=== PATIENT | male | born 1960 | race Caucasian/White ===

== ENCOUNTER 2019-04-12 15:30 | Inpatient (IN) | payer OTHER ==
[2019-04-12 17:55] VITALS: BMI 24.3
--- NOTE | 2019-04-12 20:06 | HP ---
CIWA Score - Admission Criteria [facility] Guidelines: Admission for Medically Managed Detox: Requires at least one of the followin. CIWA greater than 12 2. Seizures within the past 24 hours 3. Delirium tremens within the past 24 hours 4. Hallucinations within the past 24 hours 5. Acute intervention needed for co occurring medical disorder 6. Acute intervention needed for co occurring psychiatric disorder 7. Severe withdrawal that cannot be handled at a lower level of care (continued vomiting, continued diarrhea, abnormal vital signs) requiring intravenous medication and/or fluids 8. Admission ROS [facility] - HPI Chief Complaint: here for rehab from cocaine, in a MAT- methadone program Allergies/Adverse Reactions: Allergies Allergy/AdvReac Type Severity Reaction Status Date / Time No Known Allergies Allergy Verified 04/12/19 17:31 History of Present Illness: 58 yo- poor historian, with cured HCV, ? HTN, asthma, homeless, sleeps on the streets of [place]. PCP- does not remember. On trazodone- has not taken for several weeks. Methadone program- [address] Pt brought a list of medications (printed from PCP?) that he has been on over the last few years- pt is currently not taking any medications. cocaine- 1/2 gram injects, heroin- 3 bags/day IV THC- occasion alcohol- rarely DUR- no controlled substances Utox- THC, debbi, Mop, MTD Exam Limitations: Other (pt is hard of hearing) - Ebola screening Have you traveled outside of the country in the last 21 days: No Have you had contact with anyone from an Ebola affected area: No - Review of Systems Constitutional: No Symptoms Reported EENT: reports: No Symptoms Reported Respiratory: reports: No Symptoms reported Cardiac: reports: No Symptoms Reported Patient History - Patient Medical History Hx Hypertension: Yes Hx Hepatitis C: Yes (cured) Other Medical History: hard of hearing - PPD History Documented Results: Negative w/proof - Smoking Cessation Smoking history: Current every day smoker Have you smoked in the past 12 months: Yes Aproximately how many cigarettes per day: 10 Hx Chewing Tobacco Use: No Initiated information on smoking cessation: Yes 'Breaking Loose' booklet given: 04/12/19 - Substances abused Heroin Substance route: Injection Frequency: Daily Amount used: 3 bags Age of first use: 20 Date of last use: 04/11/19 Crack Substance route: Smoking Frequency: Daily Amount used: 100 dollars Age of first use: 21 Date of last use: 04/11/19 Marijuana/Hashish Substance route: Smoking Frequency: Daily Amount used: 50 dollars Age of first use: 21 Date of last use: 04/11/19 Alcohol Substance route: Oral Frequency: Daily Amount used: 20 dollars Age of first use: 20 Date of last use: 04/11/19 Admission Physical Exam [facility] - Vital Signs Vital Signs: Vital Signs - 24 hr 04/12/19 17:48 Temperature 98.3 F Pulse Rate 54 L Respiratory 16 Rate Blood Pressure 141/80 - Physical General Appearance: Yes: Within Normal Limits, Other (hard of hearing) HEENTM: Yes: Within Normal Limits, Hearing grossly Normal (hard of hearing), Normal Voice, AVANI, Pharynx Normal Respiratory: Yes: Within Normal Limits, Lungs Clear Neck: Yes: Within Normal Limits Cardiology: Yes: Within Normal Limits, Regular Rhythm, Regular Rate Abdominal: Yes: Within Normal Limits, Normal Bowel Sounds, Non Tender Extremities: Yes: Within Normal Limits Neurological: Yes: Within Normal Limits, Alert, Normal Mood/Affect Integumentary: Yes: Within Normal Limits, Track Daley - Diagnostic (1) Cocaine use disorder Current Visit: Yes Status: Acute (2) Opioid use disorder Current Visit: Yes Status: Acute (3) Opioid dependence on agonist therapy Current Visit: Yes Status: Acute (4) Tobacco use disorder Current Visit: Yes Status: Acute Breathalyzer - Breathalyzer Breathalyzer: 0 Urine Drug Screen - Test Device Lot number: [id number] Expiration date: 12/09/20 - Control Is test valid?: Yes - Results Drug screen NEGATIVE: No Urine drug screen results: THC-Marijuana, DEBBI-Cocaine, MOP-Opiates, MTD- Methadone Inpatient Rehab Admission - Rehab Decision to Admit Inpatient rehab admission?: Yes - Initial Determination Are CD services needed?: Yes Free of communicable disease: Yes Not in need of hospitalization: Yes - Rehab Admission Criteria Previous failed treatment: Yes Poor recovery environment: Yes Comorbidities: Yes Lacks judgement: Yes Patient is meeting Inpatient Rehab admission criteria:: Yes (using cocaine, in MAT methadone)
[2019-04-12] MEDS ORDERED: hydrOXYzine PAMOATE 50 MG CAPSULE (FP) PO PRN (20:12)
[2019-04-12] MEDS ORDERED: guaiFENesin 200 MG/10 ML 10 ML UNIT-DOSE CUPS PO PRN (20:12)
[2019-04-12] MEDS ORDERED: MAGNESIUM CITRATE 300 ML BOTTLE PO PRN (20:12)
[2019-04-12] MEDS ORDERED: IBUPROFEN 400 MG TABLET (FP) PO PRN (20:12)
[2019-04-12] MEDS ORDERED: ACETAMINOPHEN 325 MG TABLET (FP) PO PRN (20:12)
[2019-04-12] MEDS ORDERED: P-EPHED 60MG/TRIPROLIDI 2.5MG TABLET PO PRN (20:12)
[2019-04-12] MEDS ORDERED: LOPERAMIDE HCL 2 MG CAPSULE PO PRN (20:12)
[2019-04-12] MEDS ORDERED: MAG HYDROX/AL HYDROX/SIMETH 30 ML UNIT-DOSE CUP PO PRN (20:12)
[2019-04-12] MEDS ORDERED: MENTHOL/PHENOL 1 EACH UD MM PRN (20:12)
[2019-04-12] MEDS ORDERED: MAGNESIUM HYDROX 2400MG/30ML ORAL SUSPENSION 30 ML CUP PO PRN (20:12)
[2019-04-12] MEDS ORDERED: ALBUTEROL SO4 8 GM HFA INHALER IH PRN (20:13)
[2019-04-12] MEDS: THIAMINE HCL 100 MG TABLET (FP) PO SCH (22:31)
[2019-04-12] MEDS: MELATONIN 5 MG TABLETS PO PRN (22:31)
[2019-04-13] MEDS ORDERED: LEVOTHYROXINE NA 75 MCG TABLET (FP) PO SCH (07:00)
[2019-04-13] MEDS ORDERED: METHADONE HCL 10 MG TABLET PO ONE (08:02)
[2019-04-13] MEDS ORDERED: METHADONE 80 MG, METHADONE 30 MG PO ONE (08:20)
[2019-04-13 08:43] LABS: PH,URINE 5.5 (5.0-8.0); URINE APPEARANCE TURBID; URINE BILIRUBIN NEGATIVE (NEGATIVE); URINE COLOR YELLOW; URINE GLUCOSE (UA) NEGATIVE (NEGATIVE); URINE KETONE NEGATIVE (NEGATIVE); URINE LEUK ESTERASE NEGATIVE (NEGATIVE); URINE NITRITE NEGATIVE (NEGATIVE); URINE PROTEIN NEGATIVE (NEGATIVE); URINE UROBILINOGEN 0.2 mg/dL (0.2-1.0)
[2019-04-13] MEDS ORDERED: METHADONE HCL 40 MG DISPERSABLE TABLET ONE (09:13)
[2019-04-13] MEDS ORDERED: METHADONE HCL 10 MG TABLET ONE (09:13)
[2019-04-13] MEDS: PRENATAL VITAMINS W/ FOLIC ACID TABLET (FP) PO SCH (09:35)
[2019-04-13] MEDS: LEVOTHYROXINE NA 25 MCG TABLET (FP) PO SCH (09:35)
[2019-04-13] MEDS: LISINOPRIL 10 MG TABLET (FP) PO SCH (09:36)
[2019-04-13] MEDS: NICOTINE 21 MG/24 HOURS TOPICAL PATCH TD SCH (09:36)
[2019-04-13 12:04] LABS: HEMATOCRIT 37.5 % (35.4-49); HEMOGLOBIN 12.1 GM/dL (11.7-16.9); MCHC 32.3 g/dl (32.0-35.9); MEAN PLT VOLUME 12.7 fl (7.5-11.1); PLATELET COUNT 126 K/MM3 (134-434); RBC 3.91 M/mm3 (4.00-5.60); RDW 13.9 % (11.9-15.9); WHITE BLOOD COUNT 6.6 K/mm3 (4.0-10.0)
[2019-04-13 12:23] LABS: BILIRUBIN,TOTAL 0.1 mg/dL (0.2-1); BLOOD UREA NITROGEN 16.4 mg/dL (7-18); CALCIUM 8.8 mg/dL (8.5-10.1); CREATININE 1.1 mg/dL (0.55-1.3); POTASSIUM 5.1 mmol/L (3.5-5.1); TOT PROT 6.4 g/dl (6.4-8.2)
[2019-04-13] MEDS: THIAMINE HCL 100 MG TABLET (FP) PO SCH (21:09)
[2019-04-14] MEDS ORDERED: METHADONE HCL 10 MG TABLET ONE (04:38)
[2019-04-14] MEDS ORDERED: METHADONE HCL 40 MG DISPERSABLE TABLET ONE (04:38)
[2019-04-14] MEDS ORDERED: METHADONE HCL 10 MG TABLET PO SCH (06:00)
[2019-04-14] MEDS: METHADONE 80 MG, METHADONE 30 MG PO SCH (06:10)
[2019-04-14] MEDS: LEVOTHYROXINE NA 25 MCG TABLET (FP) PO SCH (06:11)
[2019-04-14] MEDS ORDERED: HYDROCORTISONE 0.5% TOPICAL CREAM 30 GM TUBE TP PRN (09:35)
[2019-04-14] MEDS ORDERED: MINERAL OIL/PETROLAT/WATER TOPICAL CREAM 454 GM JAR TP PRN (09:36)
--- NOTE | 2019-04-14 09:45 | PN ---
[facility] Progress Note (SOAP) Subjective: Heart rate low. Pt states he does not know if he has any problems with his heart. Received Vistaril 50mg at 10pm last night and Methodone 110mg this AM. No c/o chest pain, nausea or discomfort, fatigue. Objective: Heart sounds regular, lungs clear, A+Ox3, no neurological deficits noted. EKG shows QTc of 442 04/14/19 09:44 Vital Signs (72 hours) 04/12/19 04/13/19 04/13/19 17:48 00:30 03:30 Temperature 98.3 F Pulse Rate 54 L Respiratory 16 18 18 Rate Blood Pressure 141/80 04/13/19 04/13/19 04/14/19 06:51 10:44 00:30 Temperature 97.9 F 97.9 F Pulse Rate 60 102 H Respiratory 18 18 18 Rate Blood Pressure 126/70 126/70 04/14/19 04/14/19 04/14/19 03:30 06:50 09:11 Temperature 98.5 F 95.3 F L Pulse Rate 43 L 46 L Respiratory 18 18 17 Rate Blood Pressure 157/86 132/85 04/14/19 09:45 04/14/19 09:54 04/14/19 10:11 Assessment: Bradycardia 04/14/19 09:46 04/14/19 09:54 Plan: Will continue monitor; discontinued vistaril due to potential QT prolongation with methadone.
[2019-04-14] MEDS: LISINOPRIL 10 MG TABLET (FP) PO SCH (10:07)
[2019-04-14] MEDS: NICOTINE 21 MG/24 HOURS TOPICAL PATCH TD SCH (10:07)
[2019-04-14] MEDS: PRENATAL VITAMINS W/ FOLIC ACID TABLET (FP) PO SCH (10:07)
--- NOTE | 2019-04-14 10:16 | PN ---
[facility] Progress Note (SOAP) Subjective: C/O of itchy rash in groin area. Objective: Red blotchy rash with a few raised bumps. 04/14/19 10:15 Assessment: Fungal rash 04/14/19 10:15 Plan: Nystatin cream ordered.
[2019-04-14] MEDS ORDERED: MINERAL OIL/PETROLAT/WATER TOPICAL CREAM 113 GM JAR TP PRN (10:31)
[2019-04-14] MEDS: NYSTATIN 100,000 UNIT/GM TOPICAL CREAM 15 GM TUBE TP SCH ×2 (13:19→21:05)
[2019-04-14] MEDS: THIAMINE HCL 100 MG TABLET (FP) PO SCH (21:04)
[2019-04-14] MEDS: MELATONIN 5 MG TABLETS PO PRN (21:04)
[2019-04-15] MEDS ORDERED: METHADONE HCL 40 MG DISPERSABLE TABLET ONE (03:26)
[2019-04-15] MEDS ORDERED: METHADONE HCL 10 MG TABLET ONE (03:26)
[2019-04-15] MEDS: METHADONE 80 MG, METHADONE 30 MG PO SCH (06:30)
[2019-04-15] MEDS: LEVOTHYROXINE NA 25 MCG TABLET (FP) PO SCH (06:31)
[2019-04-15] MEDS: LISINOPRIL 10 MG TABLET (FP) PO SCH (10:21)
[2019-04-15] MEDS: PRENATAL VITAMINS W/ FOLIC ACID TABLET (FP) PO SCH (10:21)
[2019-04-15] MEDS: NICOTINE 21 MG/24 HOURS TOPICAL PATCH TD SCH (10:21)
[2019-04-15] MEDS ORDERED: PT OWN MED DRAWER 7, Y5N ONE (10:25)
[2019-04-15] MEDS: NYSTATIN 100,000 UNIT/GM TOPICAL CREAM 15 GM TUBE TP SCH ×2 (10:25→21:56)
[2019-04-15] MEDS: THIAMINE HCL 100 MG TABLET (FP) PO SCH (21:55)
[2019-04-15] MEDS: MELATONIN 5 MG TABLETS PO PRN (21:55)
[2019-04-16] MEDS ORDERED: METHADONE HCL 10 MG TABLET ONE (04:45)
[2019-04-16] MEDS ORDERED: METHADONE HCL 40 MG DISPERSABLE TABLET ONE (04:46)
[2019-04-16] MEDS: LEVOTHYROXINE NA 25 MCG TABLET (FP) PO SCH (06:11)
[2019-04-16] MEDS: METHADONE 80 MG, METHADONE 30 MG PO SCH (06:11)
[2019-04-16] MEDS: LISINOPRIL 10 MG TABLET (FP) PO SCH (10:02)
[2019-04-16] MEDS: NICOTINE 21 MG/24 HOURS TOPICAL PATCH TD SCH (10:03)
[2019-04-16] MEDS: PRENATAL VITAMINS W/ FOLIC ACID TABLET (FP) PO SCH (10:03)
[2019-04-16] MEDS: NYSTATIN 100,000 UNIT/GM TOPICAL CREAM 15 GM TUBE TP SCH ×2 (10:04→21:06)
[2019-04-16] MEDS: THIAMINE HCL 100 MG TABLET (FP) PO SCH (21:05)
[2019-04-16] MEDS: MELATONIN 5 MG TABLETS PO PRN (21:05)
[2019-04-17] MEDS ORDERED: METHADONE HCL 10 MG TABLET ONE (04:29)
[2019-04-17] MEDS ORDERED: METHADONE HCL 40 MG DISPERSABLE TABLET ONE (04:29)
[2019-04-17] MEDS: METHADONE 80 MG, METHADONE 30 MG PO SCH (05:55)
[2019-04-17] MEDS: LEVOTHYROXINE NA 25 MCG TABLET (FP) PO SCH (06:06)
[2019-04-17] MEDS: LISINOPRIL 10 MG TABLET (FP) PO SCH (10:16)
[2019-04-17] MEDS: NICOTINE 21 MG/24 HOURS TOPICAL PATCH TD SCH (10:16)
[2019-04-17] MEDS: PRENATAL VITAMINS W/ FOLIC ACID TABLET (FP) PO SCH (10:16)
[2019-04-17] MEDS: NYSTATIN 100,000 UNIT/GM TOPICAL CREAM 15 GM TUBE TP SCH ×2 (10:17→21:57)
--- NOTE | 2019-04-17 19:35 | EKG ---
Test Reason : Blood Pressure : / mmHG Vent. Rate : 044 BPM Atrial Rate : 044 BPM P-R Int : 156 ms QRS Dur : 096 ms QT Int : 518 ms P-R-T Axes : 069 036 069 degrees QTc Int : 442 ms MARKED SINUS BRADYCARDIA ABNORMAL ECG NO PREVIOUS ECGS AVAILABLE Confirmed by MD YANI, MARCO ([id number]) on 04/17/2019 7:34:43 PM Referred By: Confirmed By:MARCO LOMELI MD
[2019-04-17] MEDS: THIAMINE HCL 100 MG TABLET (FP) PO SCH (21:55)
[2019-04-17] MEDS: MELATONIN 5 MG TABLETS PO PRN (21:55)
[2019-04-18] MEDS ORDERED: METHADONE HCL 40 MG DISPERSABLE TABLET ONE (02:49)
[2019-04-18] MEDS ORDERED: METHADONE HCL 10 MG TABLET ONE (02:49)
[2019-04-18] MEDS: METHADONE 80 MG, METHADONE 30 MG PO SCH (06:09)
[2019-04-18] MEDS: LEVOTHYROXINE NA 25 MCG TABLET (FP) PO SCH (06:10)
[2019-04-18] MEDS: PRENATAL VITAMINS W/ FOLIC ACID TABLET (FP) PO SCH (09:52)
[2019-04-18] MEDS: LISINOPRIL 10 MG TABLET (FP) PO SCH (09:52)
[2019-04-18] MEDS: NYSTATIN 100,000 UNIT/GM TOPICAL CREAM 15 GM TUBE TP SCH ×2 (09:53→21:40)
[2019-04-18] MEDS: NICOTINE 21 MG/24 HOURS TOPICAL PATCH TD SCH (09:53)
[2019-04-18] MEDS: MELATONIN 5 MG TABLETS PO PRN (21:39)
[2019-04-18] MEDS: THIAMINE HCL 100 MG TABLET (FP) PO SCH (21:39)
[2019-04-19] MEDS ORDERED: METHADONE HCL 10 MG TABLET ONE (03:04)
[2019-04-19] MEDS ORDERED: METHADONE HCL 40 MG DISPERSABLE TABLET ONE (03:04)
[2019-04-19] MEDS: METHADONE 80 MG, METHADONE 30 MG PO SCH (06:03)
[2019-04-19] MEDS: LEVOTHYROXINE NA 25 MCG TABLET (FP) PO SCH (06:04)
[2019-04-19] MEDS ORDERED: PT OWN MED DRAWER 7, Y5N ONE (08:41)
[2019-04-19] MEDS: NICOTINE 21 MG/24 HOURS TOPICAL PATCH TD SCH (10:13)
[2019-04-19] MEDS: LISINOPRIL 10 MG TABLET (FP) PO SCH (10:13)
[2019-04-19] MEDS: NYSTATIN 100,000 UNIT/GM TOPICAL CREAM 15 GM TUBE TP SCH ×2 (10:13→21:47)
[2019-04-19] MEDS: ERGOCALCIFEROL (VIT D2) 50,000 UNIT (1.25 MG) CAPSULE PO SCH (10:13)
[2019-04-19] MEDS: PRENATAL VITAMINS W/ FOLIC ACID TABLET (FP) PO SCH (10:13)
[2019-04-19] MEDS: MELATONIN 5 MG TABLETS PO PRN (21:46)
[2019-04-19] MEDS: THIAMINE HCL 100 MG TABLET (FP) PO SCH (21:46)
[2019-04-20] MEDS ORDERED: METHADONE HCL 40 MG DISPERSABLE TABLET ONE (05:57)
[2019-04-20] MEDS ORDERED: METHADONE HCL 10 MG TABLET ONE (05:57)
[2019-04-20] MEDS: METHADONE 80 MG, METHADONE 30 MG PO SCH (06:01)
[2019-04-20] MEDS: LEVOTHYROXINE NA 25 MCG TABLET (FP) PO SCH (06:01)
[2019-04-20] MEDS: PRENATAL VITAMINS W/ FOLIC ACID TABLET (FP) PO SCH (10:12)
[2019-04-20] MEDS: LISINOPRIL 10 MG TABLET (FP) PO SCH (10:13)
[2019-04-20] MEDS: NICOTINE 21 MG/24 HOURS TOPICAL PATCH TD SCH (10:13)
[2019-04-20] MEDS: NYSTATIN 100,000 UNIT/GM TOPICAL CREAM 15 GM TUBE TP SCH ×2 (10:13→21:12)
[2019-04-20] MEDS: THIAMINE HCL 100 MG TABLET (FP) PO SCH (21:12)
[2019-04-20] MEDS: MELATONIN 5 MG TABLETS PO PRN (21:12)
[2019-04-21] MEDS ORDERED: METHADONE HCL 10 MG TABLET ONE (05:08)
[2019-04-21] MEDS ORDERED: METHADONE HCL 40 MG DISPERSABLE TABLET ONE (05:08)
[2019-04-21] MEDS: METHADONE 80 MG, METHADONE 30 MG PO SCH (05:54)
[2019-04-21] MEDS: LEVOTHYROXINE NA 25 MCG TABLET (FP) PO SCH (06:06)
[2019-04-21] MEDS ORDERED: PT OWN MED DRAWER 7, Y5N ONE (08:44)
[2019-04-21] MEDS: NICOTINE 21 MG/24 HOURS TOPICAL PATCH TD SCH (09:53)
[2019-04-21] MEDS: LISINOPRIL 10 MG TABLET (FP) PO SCH (09:53)
[2019-04-21] MEDS: PRENATAL VITAMINS W/ FOLIC ACID TABLET (FP) PO SCH (09:53)
[2019-04-21] MEDS: NYSTATIN 100,000 UNIT/GM TOPICAL CREAM 15 GM TUBE TP SCH ×2 (09:54→22:11)
[2019-04-21] MEDS: THIAMINE HCL 100 MG TABLET (FP) PO SCH (22:10)
[2019-04-21] MEDS: MELATONIN 5 MG TABLETS PO PRN (22:10)
[2019-04-22] MEDS ORDERED: METHADONE HCL 10 MG TABLET ONE (03:10)
[2019-04-22] MEDS ORDERED: METHADONE HCL 40 MG DISPERSABLE TABLET ONE (03:10)
[2019-04-22] MEDS: LEVOTHYROXINE NA 25 MCG TABLET (FP) PO SCH (06:08)
[2019-04-22] MEDS: METHADONE 80 MG, METHADONE 30 MG PO SCH (06:08)
[2019-04-22] MEDS: PRENATAL VITAMINS W/ FOLIC ACID TABLET (FP) PO SCH (10:00)
[2019-04-22] MEDS: NYSTATIN 100,000 UNIT/GM TOPICAL CREAM 15 GM TUBE TP SCH ×2 (10:00→21:09)
[2019-04-22] MEDS: NICOTINE 21 MG/24 HOURS TOPICAL PATCH TD SCH (10:01)
[2019-04-22] MEDS: LISINOPRIL 10 MG TABLET (FP) PO SCH (10:02)
[2019-04-22] MEDS: THIAMINE HCL 100 MG TABLET (FP) PO SCH (21:09)
[2019-04-22] MEDS: MELATONIN 5 MG TABLETS PO PRN (21:10)
[2019-04-23] MEDS ORDERED: METHADONE HCL 40 MG DISPERSABLE TABLET ONE (03:18)
[2019-04-23] MEDS ORDERED: METHADONE HCL 10 MG TABLET ONE (03:18)
[2019-04-23] MEDS: METHADONE 80 MG, METHADONE 30 MG PO SCH (05:59)
[2019-04-23] MEDS: LEVOTHYROXINE NA 25 MCG TABLET (FP) PO SCH (06:00)
[2019-04-23] MEDS: PRENATAL VITAMINS W/ FOLIC ACID TABLET (FP) PO SCH (10:25)
[2019-04-23] MEDS: NICOTINE 21 MG/24 HOURS TOPICAL PATCH TD SCH (10:25)
[2019-04-23] MEDS: LISINOPRIL 10 MG TABLET (FP) PO SCH (10:25)
[2019-04-23] MEDS: NYSTATIN 100,000 UNIT/GM TOPICAL CREAM 15 GM TUBE TP SCH ×2 (10:27→23:23)
[2019-04-23] MEDS: THIAMINE HCL 100 MG TABLET (FP) PO SCH (22:39)
[2019-04-23] MEDS ORDERED: PT OWN MED DRAWER 7, Y5N ONE (22:42)
[2019-04-24] MEDS ORDERED: METHADONE HCL 10 MG TABLET ONE (02:55)
[2019-04-24] MEDS ORDERED: METHADONE HCL 40 MG DISPERSABLE TABLET ONE (02:55)
[2019-04-24] MEDS: METHADONE 80 MG, METHADONE 30 MG PO SCH (05:58)
[2019-04-24] MEDS: LEVOTHYROXINE NA 25 MCG TABLET (FP) PO SCH (06:00)
[2019-04-24] MEDS: LISINOPRIL 10 MG TABLET (FP) PO SCH (10:41)
[2019-04-24] MEDS: PRENATAL VITAMINS W/ FOLIC ACID TABLET (FP) PO SCH (10:41)
[2019-04-24] MEDS: NICOTINE 21 MG/24 HOURS TOPICAL PATCH TD SCH (10:41)
[2019-04-24] MEDS: NYSTATIN 100,000 UNIT/GM TOPICAL CREAM 15 GM TUBE TP SCH ×2 (10:42→21:05)
[2019-04-24] MEDS: THIAMINE HCL 100 MG TABLET (FP) PO SCH (21:05)
[2019-04-24] MEDS: MELATONIN 5 MG TABLETS PO PRN (21:07)
[2019-04-25] MEDS ORDERED: METHADONE HCL 40 MG DISPERSABLE TABLET ONE (03:34)
[2019-04-25] MEDS ORDERED: METHADONE HCL 10 MG TABLET ONE (03:34)
[2019-04-25] MEDS: METHADONE 80 MG, METHADONE 30 MG PO SCH (06:05)
[2019-04-25] MEDS: LEVOTHYROXINE NA 25 MCG TABLET (FP) PO SCH (06:05)
[2019-04-25] MEDS: PRENATAL VITAMINS W/ FOLIC ACID TABLET (FP) PO SCH (09:54)
[2019-04-25] MEDS: LISINOPRIL 10 MG TABLET (FP) PO SCH (09:54)
[2019-04-25] MEDS: NICOTINE 21 MG/24 HOURS TOPICAL PATCH TD SCH (09:54)
[2019-04-25] MEDS: NYSTATIN 100,000 UNIT/GM TOPICAL CREAM 15 GM TUBE TP SCH ×2 (09:55→22:14)
[2019-04-25] MEDS: MELATONIN 5 MG TABLETS PO PRN (22:13)
[2019-04-25] MEDS: THIAMINE HCL 100 MG TABLET (FP) PO SCH (22:13)
[2019-04-26] MEDS ORDERED: METHADONE HCL 10 MG TABLET ONE (05:08)
[2019-04-26] MEDS ORDERED: METHADONE HCL 40 MG DISPERSABLE TABLET ONE (05:08)
[2019-04-26] MEDS: METHADONE 80 MG, METHADONE 30 MG PO SCH (06:15)
[2019-04-26] MEDS: LEVOTHYROXINE NA 25 MCG TABLET (FP) PO SCH (06:15)
[2019-04-26 06:56] VITALS: BP 125/78; PULSE 59; TEMP 98.4
[2019-04-26] MEDS ORDERED: PT OWN MED DRAWER 7, Y5N ONE (08:36)
[2019-04-26] MEDS: LISINOPRIL 10 MG TABLET (FP) PO SCH (10:01)
[2019-04-26] MEDS: PRENATAL VITAMINS W/ FOLIC ACID TABLET (FP) PO SCH (10:02)
[2019-04-26] MEDS: ERGOCALCIFEROL (VIT D2) 50,000 UNIT (1.25 MG) CAPSULE PO SCH (10:04)
[2019-04-26] MEDS: NYSTATIN 100,000 UNIT/GM TOPICAL CREAM 15 GM TUBE TP SCH (10:05)
[2019-04-26] MEDS: NICOTINE 21 MG/24 HOURS TOPICAL PATCH TD SCH (10:05)
--- NOTE | 2019-04-26 10:16 | PN ---
BHS Progress Note (SOAP) Subjective: Patient to be discharged today. Hospital Course: Admitted to Drug Rehab on 04/12. Attended group meetings, had individual counseling session with his counselor , adhered to treatment plan and was adherent to medication regimen during his stay. Objective: Examination: A=O x3, difficulty hearing, no other neurological deficits noted, heart sounds regular, lungs clear, abd soft, non-tender, non-distended, +BS, skin clear, ambulates easily without supportive devices. 04/26/19 10:17 04/26/19 10:20 CBC, BMP 04/12/19 08:35 04/12/19 08:35 Vital Signs (72 hours) 04/24/19 04/24/19 04/24/19 03:30 06:38 09:00 Temperature 98.2 F Pulse Rate 68 64 Respiratory 18 16 18 Rate Blood Pressure 125/88 109/76 04/25/19 04/25/19 04/25/19 00:30 03:30 06:56 Temperature 97.9 F Pulse Rate 57 L Respiratory 18 18 16 Rate Blood Pressure 130/88 04/25/19 04/26/19 04/26/19 10:00 03:30 06:55 Temperature 98.4 F Pulse Rate 56 L 59 L Respiratory 19 18 18 Rate Blood Pressure 131/93 125/78 Assessment: Medically stable for discharge Discharge dx: opioid Dependence Cocaine dependence Plan: Coordination of ongoing care: Patient will continue with aftercare at [facility] for both substance abuse treatment and medical care. Prescriptions transmitted to his pharmacy.
[2019-04-27] MEDS ORDERED: METHADONE 80 MG, METHADONE 30 MG PO SCH (06:00)
== END 2019-04-26 10:18 | disposition home or self-care (01) | DRG 772 ==
LOC: YASAS 15:30 → Y3W 20:15
PROVIDERS: ADMIT Neuromusculoskeletal Medicine & OMM; ATTEND Neuromusculoskeletal Medicine & OMM
PROC: HZ42ZZZ Group Counseling for Substance Abuse Treatment, Cognitive-Behavioral (ICD-10-PCS; principal; 2019-04-12)
DX: F11.20 Opioid dependence, uncomplicated (principal); F10.20 Alcohol dependence, uncomplicated; F14.20 Cocaine dependence, uncomplicated; F12.20 Cannabis dependence, uncomplicated; F17.210 Nicotine dependence, cigarettes, uncomplicated; I10 Essential (primary) hypertension; E03.9 Hypothyroidism, unspecified; R00.1 Bradycardia, unspecified; H91.90 Unspecified hearing loss, unspecified ear; Z59.0 Homelessness
CPT/HCPCS: 36415; 80053; 81003; 84436; 84443; 84479; 85027; 86593; 87389; 93005; 93010